=== PATIENT | male | born 1955 | race Caucasian/White ===

== ENCOUNTER 2018-08-23 18:54 | Emergency (ER) | payer OTHER ==
[~2018-08-23] VITALS: Ht 170.2 cm; Wt 65.8 kg
[2018-08-23 19:02] VITALS: BP 142/76
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
--- NOTE | 2018-08-23 21:09 | NUR ---
ED Nurse Note: Provide snack food for Pt.
[2018-08-23 21:20] VITALS: BP 132/72
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
== END 2018-08-23 21:20 | disposition home or self-care (01) ==
LOC: EDBD 18:54 → EMR 19:28
DX: T20.40XA Corrosion of unspecified degree of head, face, and neck, unspecified site, initial encounter (principal); Z86.59 Personal history of other mental and behavioral disorders; T32.0 Corrosions involving less than 10% of body surface; Y92.9 Unspecified place or not applicable
CPT/HCPCS: 99282